=== PATIENT | female | born 1985 | race Caucasian/White ===

== ENCOUNTER 2017-04-25 15:26 | Emergency (ER) | payer OTHER ==
[~2017-04-25] VITALS: Ht 154.9 cm; Wt 47.0 kg
[~2017-04-25 15:26] MED LIST: AMOX875T PO; CHLO.12%30 SSP; CLIN150 PO; IBUP600T26 PO; IRONCAP2 PO
[2017-04-25 15:28] VITALS: BP 137/88; PULSE 85; RESP 14; TEMP 98.6; O2SAT 100
[2017-04-25] MEDS ORDERED: MEDR4PAK PO (17:14)
--- NOTE | 2017-04-25 17:14 | PD ---
HPI Chief Complaint: Oral / Dental Pain or Problem Time Seen by Provider: 16:57 Travel History International Travel<30 days: No Contact w/Intl Traveler<30days: No Traveled to known affect area: No History of Present Illness HPI 31-year-old female presents to emergency department for evaluation of left- sided facial pain, intermittently occurring, sharp, stinging pains coming from her scalp to her cheek. Patient denies trauma. This is been ongoing intermittently for the last week, she notices it more at night. Denies any ear pain. Denies any tooth pain. She does have a chipped tooth but it has never given her problems. Denies fever or chills. No recent illnesses. Patient has no other symptoms to report at this time. [facility] Past Medical History Anemia: Yes Asthma: Yes Migraines: Yes ?: Unknown : 2 Para: 1 Past Surgical History Ear Surgery: Yes (LEFT MASTOIDECTOMY) Social History Alcohol Use: No Tobacco Use: No (QUIT 07/22) Substance Use: No Allergies-Medications (Allergen,Severity, Reaction): Coded Allergies: promethazine (Unverified Allergy, Severe, 02/23/17) Reported Meds & Prescriptions Reported Meds & Active Scripts Active Medrol Dosepak (Methylprednisolone) 4 Mg Dspk 4 Mg PO DIRECTED Per Pharmacist direction Peridex Oral Rinse (Chlorhexidine Gluconate) 0.12 % Mraian 15 Ml SSP BID 10 Days Ibuprofen 600 Mg Tab 600 Mg PO Q8HR PRN Cleocin (Clindamycin HCl) 150 Mg Cap 2 Tab PO QID Amoxil (Amoxicillin) 875 Mg Tab 875 Mg PO BID 10 Days Reported Iron Complex (Iron/Minerals/Multivitamins) Cap 1 Cap PO DAILY Review of Systems Except as stated in HPI: all other systems reviewed are Neg Physical Exam Narrative GENERAL: Well-nourished, well-developed female patient in no acute distress SKIN: Focused skin assessment warm/dry. HEAD: Normocephalic. No mastoid tenderness EARS: Bilateral pinnae and external canals appear within normal limits. Bilateral tympanic membranes without erythema, dullness or perforation. Small serous effusion in the left ear. EYES: No scleral icterus. No injection or drainage. DENTAL: No loose teeth. The left mandibular second molar has a chip but no gingival erythema or edema. No appreciable abscess. No malocclusion. NECK: Supple, trachea midline. No JVD or lymphadenopathy. CARDIOVASCULAR: Regular rate and rhythm without murmurs, gallops, or rubs. RESPIRATORY: Breath sounds equal bilaterally. No accessory muscle use. GASTROINTESTINAL: Abdomen soft, non-tender, nondistended. MUSCULOSKELETAL: No cyanosis, or edema. BACK: Nontender without obvious deformity. No CVA tenderness. Data Data Last Documented VS Vital Signs Date Time Temp Pulse Resp B/P (MAP) Pulse Ox O2 Delivery O2 Flow Rate FiO2 04/25/17 17:28 04/25/17 15:28 98.6 85 14 100 Orders Orders Dexamethasone Inj (Decadron Inj) (04/25/17 17:15) Ed Discharge Order (04/25/17 17:14) [facility] Medical Decision Making Medical Screen Exam Complete: Yes Emergency Medical Condition: Yes Medical Record Reviewed: Yes Differential Diagnosis Trigeminal neuralgia versus occipital neuralgia versus sinusitis versus dental pain versus otitis media Narrative Course 31-year-old female presents to emergency department for evaluation of left- sided face pain. The face is symmetric. There are really no acute findings on examination. Neuro exam is nonfocal. I do not see any source for her pain. This may very well be like a trigeminal neuralgia. I'll place the patient on a short course of oral steroids to see if this may help. I encouraged her to follow-up with primary care provider. She agrees to return immediately with any acute worsening of symptoms. Diagnosis Primary Impression: Left-sided face pain Referrals: Primary Care Physician Patient Instructions: General Instructions, Shingles (ED), Trigeminal Neuralgia (ED) Additional Instructions: Follow-up with a primary care provider Return immediately with any acute worsening of symptoms Med/Other Pt SpecificInfo: Prescription(s) given Scripts Methylprednisolone Dosepak (Medrol Dosepak) 4 Mg Dspk 4 MG PO DIRECTED, #1 DSPK 0 Refills Per Pharmacist direction Prov: Tasia Navarro 04/25/17 Disposition: 01 DISCHARGE HOME Condition: Stable Tasia Navarro Apr 25, 2017 17:14
[2017-04-25] MEDS ORDERED: DEXAMETHASONE SOD PHOS 4 MG/ML VIAL IM ONE (17:15)
== END 2017-04-25 17:29 | disposition home or self-care (01) ==
LOC: NEPK 15:26
DX: R51 Headache (principal); Z86.2 Personal history of diseases of the blood and blood-forming organs and certain disorders involving the immune mechanism; Z87.09 Personal history of other diseases of the respiratory system; Z86.69 Personal history of other diseases of the nervous system and sense organs
CPT/HCPCS: 96372; 99284; J1100